=== PATIENT | male | born 1960 | race Caucasian/White ===

== ENCOUNTER 2017-05-19 21:17 | Emergency (ER) | payer BC ==
[~2017-05-19] VITALS: Ht 185.4 cm; Wt 96.9 kg
[2017-05-19 21:20] VITALS: Ht 185.4 cm; Wt 96.9 kg
[2017-05-19] MEDS ORDERED: KETOROLAC 30 MG INJ IV STA (22:34)
[2017-05-19] MEDS ORDERED: SOD CHLORIDE 0.9% 1,000 ML IV STA (22:34)
[2017-05-19] MEDS ORDERED: LIDOCAINE 4% CR ONE (23:10)
--- NOTE | 2017-05-19 23:16 | RADRPT ---
PROCEDURE: CT Abdomen and Pelvis without contrast. CLINICAL INDICATION: Constipation. TECHNIQUE: A CT scan of the abdomen and pelvis was performed without intravenous contrast. Kirk l and sagittal reformatted images were generated. DICOM images are available. Images were reviewed o n a high-resolution PACS workstation. CTDIvol: 15.64 mGy. DLP: 979.59 mGy-cm. One or more of the following dose reduction techniques were used: - Automated exposure control. - Adjustment of the mA and/or kV according to patient size. - Use of iterative reconstruction technique. COMPARISON: None. FINDINGS: The lung bases are clear. Evaluation of the abdominal and pelvic viscera is limited by the lack of oral and intravenous contra st. The liver is diffusely hypodense, consistent with fatty infiltration. The gallbladder is normal in appearance. The common bile duct is not dilated. The spleen is not enlarged. No pancreatic lesion is identified and there is no pancreatic ductal dilatation. The adrenal glands are unremarkable. The kidneys are normal in size. There is no perinephric fat stranding. No hydronephrosis is seen. No urinary stone is identified. The small and large bowel are normal in caliber. There is no bowel wall thickening. There is a small to moderate amount of retained stool in the mid to distal colon. Fluid is seen in the more proximal colon. The appendix is normal. The urinary bladder is unremarkable. The pelvic organs are within normal limits. No lymphadenopathy is identified. There is no ascites. No pneumoperitoneum is seen. There are no art erial calcifications. No suspicious osseous lesion is idenitified. IMPRESSION: 1. No inflammation, mass, or lymphadenopathy. 2. Small to moderate amount of retained stool in the mid to distal colon. Fluid is seen in the more proximal colon. 3. Normal appendix. 4. Fatty infiltration of the liver. RPTAT: HTAR .Mu Pollock MD, MD Date Time Electronically viewed and signed by .Mu Pollock MD, on 05/19/2017 23:15 .R/
[2017-05-20] MEDS ORDERED: MAGNESIUM CITRATE 300 ML BTL PO ONE
[2017-05-20] MEDS ORDERED: MAGN296S40 PO (00:42)
[2017-05-20] MEDS ORDERED: POLY17PO6 PO (00:42)
[2017-05-20] MEDS ORDERED: NAPR-688 PO (00:42)
[2017-05-20 00:46] VITALS: BP 123/79; PULSE 83; RESP 18; TEMP 98.2
--- NOTE | 2017-05-20 00:49 | ERD ---
ER Documentation Chief Complaint Chief Complaint PT IN C/O "ABDOMINAL PAIN AND CONSTIPATION X 2 DAYS" HPI 56-year-old male comes in complaining of abdominal pain and constipation for 2 days. The pain is generalized out of the abdomen. Said no fever chills. He has no nausea and has not vomited. He has never had abdominal surgery. He has a fever in triage with a temporal thermometer but denies any cough. ROS All systems reviewed and are negative except as per history of present illness. Medications Home Meds Active Scripts Naproxen* (Naproxen*) 500 Mg Tablet, 500 MG PO BID Y for PAIN, #20 TAB Prov:JESSY MARISCAL DO 05/20/17 Polyethylene Glycol* (Miralax*) 17 Gm Powd.pack, 17 GM PO DAILY, #7 Prov:JESSY MARISCAL DO 05/20/17 Magnesium Citrate* (Magnesium Citrate*) 296 Ml Solution, 296 ML PO ONCE, #1 BOTTLE Prov:JESSY MARISCAL DO 05/20/17 Allergies Allergies: Coded Allergies: No Known Allergy (Unverified , 05/19/17) Physical Exam Vitals Vital Signs Date Time Temp Pulse Resp B/P Pulse Ox O2 Delivery O2 Flow Rate FiO2 05/19/17 21:20 100.8 126 18 120/82 98 Physical Exam Const: [] Mild distress Head: Atraumatic Eyes: Normal Conjunctiva ENT: Normal External Ears, Nose and Mouth. Neck: Full range of motion.. Resp: Clear to auscultation bilaterally Cardio: Regular rate and rhythm, no murmurs Abd: Soft, mild generalized abdominal tenderness without guarding or rebound , non distended. Normal bowel sounds Skin: No petechiae or rashes Ext: No cyanosis, or edema Neur: Awake and alert 3, no focal deficits Psych: Normal Mood and Affect Result Diagram: 05/19/17 2300 Results 24 hrs Laboratory Tests Test 05/19/17 23:00 White Blood Count 8.310^3/ul Red Blood Count 5.0610^6/ul Hemoglobin 14.9g/dl Hematocrit 43.5% Mean Corpuscular Volume 86.0fl Mean Corpuscular Hemoglobin 29.4pg Mean Corpuscular Hemoglobin Concent 34.3g/dl Red Cell Distribution Width 13.0% Platelet Count 66192^3/UL Mean Platelet Volume 11.3fl Neutrophils % 63.8% Lymphocytes % 18.3% Monocytes % 16.3% Eosinophils % 0.6% Basophils % 0.8% Nucleated Red Blood Cells % 0.0/100WBC Neutrophils # 5.310^3/ul Lymphocytes # 1.510^3/ul Monocytes # 1.410^3/ul Eosinophils # 0.110^3/ul Basophils # 0.110^3/ul Nucleated Red Blood Cells # 0.010^3/ul Current Medications Medications (Trade) Dose Ordered Sig/Jairo Route PRN Reason Start Time Stop Time Status Last Admin Dose Admin Sodium Chloride (NS) 1,000 ml @ 1,000 mls/hr Q1H STAT IV 05/19/17 22:34 05/19/17 23:33 DC 05/19/17 22:57 Ketorolac Tromethamine (Toradol) 30 mg ONCE STAT IV 05/19/17 22:34 05/19/17 22:36 DC 05/19/17 22:56 Lidocaine (Lmx 4% Plus) 5 applic STK-MED ONCE .ROUTE 05/19/17 23:10 05/19/17 23:11 DC Magnesium Citrate (Citroma) 300 ml ONCE ONCE PO 05/20/17 00:00 05/20/17 00:01 DC 05/20/17 00:06 Procedures/MDM 56-year-old male with abdominal pain likely secondary to constipation. Also has a fatty liver. Patient was given a liter of normal saline and Toradol which helped with the pain greatly. Had a fever in triage with this was within notoriously inaccurate temporal thermometer. Was repeated in the room and it was 100.2 and elevated. Therefore I did get a CAT scan to look for any possible source of fever as his only symptom was abdominal pain. CBC showed no elevated white count. Patient left before chemistries were obtained because he felt well did not want to wait. Printed his CAT scan form and recommended he call for results soon as possible. Primary care follow-up in 2-3 days and return precautions CT abdomen pelvis interpretation: Constipation with retained stool throughout colon, no other acute process, fatty liver, no bowel obstruction, no free air abnormal fat stranding. No fractures Departure Diagnosis: Primary Impression: Constipation Additional Impression: Acute abdominal pain Condition: Stable Patient Instructions: Abdominal Pain, Constipation (Adult) Additional Instructions: Call your primary care doctor TOMORROW for an appointment during the next 2-3 days.See the doctor sooner or return here if your condition worsens before your appointment time. JESSY MARISCAL DO May 20, 2017 00:49
[2017-05-20 00:51] LABS: ALBUMIN 4.4 g/dl (3.3-4.9); ALBUMIN/GLOBULIN RATIO 1.15; CALCIUM 9.4 mg/dl (8.4-10.2); CREATININE 1.15 mg/dl (0.61-1.24); POTASSIUM 4.2 mmol/L (3.5-5.1); TOTAL PROTEIN 8.2 g/dl (6.1-8.1)
== END 2017-05-20 00:10 | disposition home or self-care (01) ==
LOC: E/R 21:17
DX: K59.00 Constipation, unspecified (principal)
CPT/HCPCS: 36415; 74176; 80053; 83690; 96361; 96374; 99285; J1885; J7030; Z7610; 85025